=== PATIENT | female | born 1995 | race Caucasian/White ===

== ENCOUNTER 2018-04-08 13:14 | Inpatient (IN) | payer MEDICAID ==
[2018-04-08 14:29] LABS: CHLORIDE,CL 102 mmol/L (98-107); SODIUM,NA 133 mmol/L (136-145)
[2018-04-08] MEDS ORDERED: Carboprost Tromethamine 250 MCG/1 ML Amp IM PRN (15:51)
[2018-04-08] MEDS ORDERED: Sodium Chloride 0.9% 10 ML Syringe FLUSH PRN (15:51)
[2018-04-08] MEDS ORDERED: Tranexamic Acid 1,000 MG in Sodium Chloride 0.9% 100 ML IV PRN (15:51)
[2018-04-08] MEDS ORDERED: Methylergonovine 0.2 MG/1 ML Amp IM PRN (15:51)
[2018-04-08] MEDS ORDERED: Butorphanol 1 MG/ML SDV IVPUSH PRN (15:51)
[2018-04-08] MEDS ORDERED: Nalbuphine 10 MG/1 ML Vial IVPUSH PRN (15:51)
[2018-04-08] MEDS ORDERED: Water For Irrigation,Sterile 1,000 ML Container IRR PRN (15:51)
[2018-04-08] MEDS ORDERED: Sodium Chloride 0.9% 2.5 ML Syringe FLUSH PRN (15:51)
[2018-04-08] MEDS ORDERED: Lidocaine 1% 50 ML MDV INJECT PRN (15:51)
[2018-04-08] MEDS ORDERED: Misoprostol 200 MCG Tab PO PRN (15:51)
[2018-04-08] MEDS ORDERED: Misoprostol 25 MCG (1/4 of 100 MCG) Tab VAG PRN (15:56)
[2018-04-08] MEDS ORDERED: Terbutaline 1 MG/ML SDV SUBCUT PRN (15:56)
[2018-04-08] MEDS ORDERED: Oxytocin/0.9 % Sodium Chloride 30 UNIT/500 ML BAG IV SCH ×2 (16:00)
[2018-04-08] MEDS: Lactated Ringers 1,000 ML IV SCH ×2 (16:38→23:34)
[2018-04-08] MEDS: Misoprostol 25 MCG (1/4 of 100 MCG) Tab VAG PRN ×2 (16:38→17:09)
[2018-04-09] MEDS ORDERED: Lidocaine HCl/EPINEPHrine 5 ML IJ ONE (00:44)
[2018-04-09] MEDS ORDERED: fentaNYL 100 MCG/2 ML SDV ONE (00:45)
[2018-04-09] MEDS ORDERED: Ropivacaine 0.2% 2 MG/ML 20 ML SDV ONE (00:46)
[2018-04-09] MEDS: Lactated Ringers 1,000 ML IV SCH (00:56)
--- NOTE | 2018-04-09 01:26 | PCM.PREANE ---
Preanesthetic Assessment - Anesthesia/Transfusion/Family Hx Anesthesia History: Prior Anesthesia Without Reaction (States had a broken bone) Family History of Anesthesia Reaction: No Transfusion History: No Prior Transfusion(s) - Review of Systems General: No Symptoms Pulmonary: No Symptoms Cardiovascular: No Symptoms Gastrointestinal: No Symptoms Neurological: No Symptoms Other: Reports: None (Denies any personal or family hx of bleeding or clotting problems) - Physical Assessment Height: 1.7 m Weight: 81.193 kg ASA Class: 2 Mental Status: Alert & Oriented x3 Airway Class: Mallampati = 2 Dentition: Reports: Normal Dentition ROM/Head Extension: Full - Lab Values: Laboratory Last Values WBC 7.62 K/uL (4.0-11.0) 04/08/18 13:55 RBC 3.80 M/uL (4.30-5.90) L 04/08/18 13:55 Hgb 12.3 g/dL (12.0-16.0) 04/08/18 13:55 Hct 35.5 % (36.0-46.0) L 04/08/18 13:55 MCV 93.4 fL (80.0-98.0) 04/08/18 13:55 MCH 32.4 pg (27.0-32.0) H 04/08/18 13:55 MCHC 34.6 g/dL (31.0-37.0) 04/08/18 13:55 RDW Std Deviation 42.6 fl (28.0-62.0) 04/08/18 13:55 RDW Coeff of Adrien 13 % (11.0-15.0) 04/08/18 13:55 Plt Count 162 K/uL (150-400) 04/08/18 13:55 MPV 11.30 fL (7.40-12.00) 04/08/18 13:55 Neut % (Auto) 70.2 % (48.0-80.0) 04/08/18 13:55 Lymph % (Auto) 19.8 % (16.0-40.0) 04/08/18 13:55 [place] % (Auto) 7.7 % (0.0-15.0) 04/08/18 13:55 Eos % (Auto) 2.0 % (0.0-7.0) 04/08/18 13:55 Baso % (Auto) 0.3 % (0.0-1.5) 04/08/18 13:55 Neut # (Auto) 5.4 K/uL (1.4-5.7) 04/08/18 13:55 Lymph # (Auto) 1.5 K/uL (0.6-2.4) 04/08/18 13:55 [place] # (Auto) 0.6 K/uL (0.0-0.8) 04/08/18 13:55 Eos # (Auto) 0.2 K/uL (0.0-0.7) 04/08/18 13:55 Baso # (Auto) 0.0 K/uL (0.0-0.1) 04/08/18 13:55 Nucleated RBC % 0.0 /100WBC 04/08/18 13:55 Nucleated RBCs # 0 K/uL 04/08/18 13:55 Sodium 133 mmol/L (136-145) L 04/08/18 13:55 Potassium 3.8 mmol/L (3.5-5.1) 04/08/18 13:55 Chloride 102 mmol/L (98-107) 04/08/18 13:55 Carbon Dioxide 21.4 mmol/L (21.0-32.0) 04/08/18 13:55 BUN 9 mg/dL (7.0-18.0) 04/08/18 13:55 Creatinine 0.9 mg/dL (0.6-1.0) 04/08/18 13:55 Est Cr Clr Drug Dosing 95.35 mL/min 04/08/18 13:55 Estimated GFR (MDRD) > 60.0 ml/min 04/08/18 13:55 Glucose 95 mg/dL (74-106) 04/08/18 13:55 Uric Acid 5.4 mg/dL (2.6-7.2) 04/08/18 13:55 Calcium 9.2 mg/dL (8.5-10.1) 04/08/18 13:55 Total Bilirubin 0.3 mg/dL (0.2-1.0) 04/08/18 13:55 AST 14 IU/L (15-37) L 04/08/18 13:55 ALT 11 IU/L (14-63) L 04/08/18 13:55 Alkaline Phosphatase 224 U/L (46-116) H 04/08/18 13:55 Total Protein 6.5 g/dL (6.4-8.2) 04/08/18 13:55 Albumin 2.7 g/dL (3.4-5.0) L 04/08/18 13:55 Globulin 3.8 g/dL (2.6-4.0) 04/08/18 13:55 Albumin/Globulin Ratio 0.7 (0.9-1.6) L 04/08/18 13:55 Blood Type A POSITIVE 04/08/18 16:16 Antibody Screen NEGATIVE 04/08/18 16:16 - Allergies Allergies/Adverse Reactions: Allergies Allergy/AdvReac Type Severity Reaction Status Date / Time No Known Allergies Allergy Verified 03/16/18 15:14 - Acknowledgements Anesthesia Type Planned: Epidural Pt an Appropriate Candidate for the Planned Anesthesia: Yes Alternatives and Risks of Anesthesia Discussed w Pt/Guardian: Yes Pt/Guardian Understands and Agrees with Anesthesia Plan: Yes PreAnesthesia Questionnaire - Past Health History Medical/Surgical History: Denies Medical/Surgical History - Infectious Disease History Infectious Disease History: Reports: Mononucleosis - SUBSTANCE USE Smoking Status *Q: Never Smoker Tobacco Use Within Last Twelve Months: No Second Hand Smoke Exposure: No Recreational Drug Use History: No - HOME MEDS Home Medications: Home Meds [id number]/Omega3/Dha/Fish Oil [ Gummies] 1 each PO DAILY 03/16/18 [ History] - CURRENT (IN HOUSE) MEDS Current Meds: Current Medications Butorphanol Tartrate (Stadol) 1 mg IVPUSH Q1H PRN PRN Reason: Pain Carboprost Tromethamine (Hemabate Ds) 250 mcg IM ASDIRECTED PRN PRN Reason: Post Hemorrhage Tranexamic Acid 1,000 mg/ (Sodium Chloride) 110 mls @ 660 mls/hr IV ONETIME PRN PRN Reason: Bleeding Lactated Ringer's (Ringers, Lactated) 1,000 mls @ 150 mls/hr IV ASDIRECTED [facility] Last Admin: 04/09/18 00:56 Dose: 999 mls/hr Oxytocin/Sodium Chloride (Oxytocin 30 Unit/500 Ml-Ns) 30 unit in 500 mls @ 999 mls/hr IV TITRATE [facility] Oxytocin/Sodium Chloride (Oxytocin 30 Unit/500 Ml-Ns) 30 unit in 500 mls @ 2 mls/hr IV TITRATE [facility]; Protocol Last Titration: 04/09/18 01:23 Dose: 6 munits/min, 6 mls/hr Lidocaine HCl (Xylocaine 1%) 50 ml INJECT ONETIME PRN PRN Reason: Laceration repair Methylergonovine Maleate (Methergine) 0.2 mg IM ASDIRECTED PRN PRN Reason: Post Hemorrhage Misoprostol (Cytotec) 200 mcg PO ONETIME PRN PRN Reason: Post Hemorrhage Misoprostol (Cytotec) 25 mcg VAG ONETIME PRN PRN Reason: Cervical Ripening Last Admin: 04/08/18 17:09 Dose: 25 mcg Misoprostol (Cytotec) 25 mcg VAG Q6H PRN PRN Reason: Cervical Ripening Nalbuphine HCl (Nubain) 10 mg IVPUSH Q1H PRN PRN Reason: Pain (severe 7-10) Sodium Chloride (Saline Flush) 10 ml FLUSH ASDIRECTED PRN PRN Reason: Keep Vein Open Sodium Chloride (Saline Flush) 2.5 ml FLUSH ASDIRECTED PRN PRN Reason: Keep Vein Open Sterile Water (Sterile Water For Irrigation) 1,000 ml IRR ASDIRECTED PRN PRN Reason: delivery Terbutaline Sulfate (Brethine) 0.25 mg SUBCUT ASDIRECTED PRN PRN Reason: Tacysystole Discontinued Medications Fentanyl (Sublimaze) Confirm Administered Dose 100 mcg .ROUTE .STK-MED ONE Stop: 04/09/18 00:46 Fentanyl/Bupivacaine HCl (Aylahgsh-Owywq-Mx 2 Mcg/Ml-0.125%) Confirm Administered Dose 100 mls @ as directed .ROUTE .STK-MED ONE Stop: 04/09/18 00:45 Lidocaine/Epinephrine (Lidocaine 1.5%-Epi 1:200,000) Confirm Administered Dose 5 ml IJ .STK-MED ONE Stop: 04/09/18 00:45 Ropivacaine (Naropin 0.2%) Confirm Administered Dose 20 ml .ROUTE .STK-MED ONE Stop: 04/09/18 00:47
[2018-04-09] MEDS ORDERED: Acetaminophen 500 MG Tab PO PRN (14:35)
[2018-04-09] MEDS ORDERED: Bisacodyl 10 MG Supp RECTAL PRN (14:35)
[2018-04-09] MEDS ORDERED: Ibuprofen 400 MG Tab PO PRN (14:35)
[2018-04-09] MEDS ORDERED: Benzocaine/Menthol 20%-0.5% Spray 78 GM Cannister TOP PRN (14:35)
[2018-04-09] MEDS ORDERED: Witch Hazel Medicated Pads 40/Jar TOP PRN (14:35)
[2018-04-09] MEDS ORDERED: Lanolin 100% Cream 7 GM Tube TOP PRN (14:35)
[2018-04-09] MEDS ORDERED: oxyCODONE 5 MG Tab PO PRN (14:35)
--- NOTE | 2018-04-09 14:43 | PCM.DEL ---
L & D Note - General Info Date of Service: 04/09/18 Mother's Due Date: 04/23/18 - Delivery Note Labor: Augmented by Oxytocin Cervical Ripening Method: Misoprostil Delivery Outcome: Livebirth Presentation: Left Occiput Anterior (ISAAK) Nuchal Cord: None Anesthesia Type: Epidural Anesthetic: Lidocaine (Xylocaine) 1% Plain Local Anesthetic Volume: 5cc Amniotic Fluid Description: Clear Episiotomy Type: Right Mediolateral Suture type: Other (monocryl) Suture size: 2-0 Placenta: Intact Cord: 3 Vessels Estimated Blood Loss: 400 Resuscitation Needed: No Score 1 min: 8 Score 5 min: 9 Delivery Comments (Free Text/Narrative):: Live female delivered at 1341 , 8/9 weight 3190 , EBL 400,gave methergine 0.2mg - General Info Date of Service: 04/09/18 - Patient Data Weight - Most Recent: 81.193 kg Lab Results Last 24 Hours: Laboratory Results - last 24 hr 04/08/18 Range/Units 16:16 Blood Type A POSITIVE Antibody Screen NEGATIVE Med Orders - Current: Current Medications Butorphanol Tartrate (Stadol) 1 mg IVPUSH Q1H PRN PRN Reason: Pain Carboprost Tromethamine (Hemabate Ds) 250 mcg IM ASDIRECTED PRN PRN Reason: Post Hemorrhage Tranexamic Acid 1,000 mg/ (Sodium Chloride) 110 mls @ 660 mls/hr IV ONETIME PRN PRN Reason: Bleeding Lactated Ringer's (Ringers, Lactated) 1,000 mls @ 150 mls/hr IV ASDIRECTED [facility] Last Admin: 04/09/18 00:56 Dose: 999 mls/hr Oxytocin/Sodium Chloride (Oxytocin 30 Unit/500 Ml-Ns) 30 unit in 500 mls @ 999 mls/hr IV TITRATE [facility]IT Oxytocin/Sodium Chloride (Oxytocin 30 Unit/500 Ml-Ns) 30 unit in 500 mls @ 2 mls/hr IV TITRATE [facility]; Protocol Last Titration: 04/09/18 06:45 Dose: 6 munits/min, 6 mls/hr Lidocaine HCl (Xylocaine 1%) 50 ml INJECT ONETIME PRN PRN Reason: Laceration repair Methylergonovine Maleate (Methergine) 0.2 mg IM ASDIRECTED PRN PRN Reason: Post Hemorrhage Misoprostol (Cytotec) 200 mcg PO ONETIME PRN PRN Reason: Post Hemorrhage Misoprostol (Cytotec) 25 mcg VAG ONETIME PRN PRN Reason: Cervical Ripening Last Admin: 04/08/18 17:09 Dose: 25 mcg Misoprostol (Cytotec) 25 mcg VAG Q6H PRN PRN Reason: Cervical Ripening Nalbuphine HCl (Nubain) 10 mg IVPUSH Q1H PRN PRN Reason: Pain (severe 7-10) Sodium Chloride (Saline Flush) 10 ml FLUSH ASDIRECTED PRN PRN Reason: Keep Vein Open Sodium Chloride (Saline Flush) 2.5 ml FLUSH ASDIRECTED PRN PRN Reason: Keep Vein Open Sterile Water (Sterile Water For Irrigation) 1,000 ml IRR ASDIRECTED PRN PRN Reason: delivery Terbutaline Sulfate (Brethine) 0.25 mg SUBCUT ASDIRECTED PRN PRN Reason: Tacysystole Discontinued Medications Fentanyl (Sublimaze) Confirm Administered Dose 100 mcg .ROUTE .STK-MED ONE Stop: 04/09/18 00:46 Fentanyl/Bupivacaine HCl (Qhcyqsxr-Zydng-Gh 2 Mcg/Ml-0.125%) Confirm Administered Dose 100 mls @ as directed .ROUTE .STK-MED ONE Stop: 04/09/18 00:45 Fentanyl/Bupivacaine HCl (Gwsggrnn-Auptx-El 2 Mcg/Ml-0.125%) Confirm Administered Dose 100 mls @ as directed .ROUTE .STK-MED ONE Stop: 04/09/18 11:27 Lidocaine/Epinephrine (Lidocaine 1.5%-Epi 1:200,000) Confirm Administered Dose 5 ml IJ .STK-MED ONE Stop: 04/09/18 00:45 Ropivacaine (Naropin 0.2%) Confirm Administered Dose 20 ml .ROUTE .STK-MED ONE Stop: 04/09/18 00:47 - Problem List & Annotations (1) Vaginal delivery SNOMED Code(s): 709900713 Code(s): O80 - ENCOUNTER FOR FULL-TERM UNCOMPLICATED DELIVERY Status: Acute Current Visit: Yes - Problem List Review Problem List Initiated/Reviewed/Updated: Yes - My Orders Last 24 Hours: My Active Orders 04/09/18 14:35 Acetaminophen [Tylenol Extra Strength] 1,000 mg PO Q4H PRN Acetaminophen [Tylenol Extra Strength] 500 mg PO Q4H PRN Benzocaine/Menthol [Dermoplast Pain Relief 20%-0.5% [place]] 78 gm TOP ASDIRECTED PRN Bisacodyl [Dulcolax] 10 mg RECTAL ONETIME PRN Docusate Sodium [Colace] 100 mg PO BID PRN Ibuprofen [Motrin] 400 mg PO Q4H PRN Ibuprofen [Motrin] 800 mg PO Q6H PRN Lanolin [Lansinoh HPA] See Dose Instructions TOP ASDIRECTED PRN Witch Kristen [Tucks] 1 pad TOP ASDIRECTED PRN oxyCODONE 5 mg PO Q2H PRN Resuscitation Status Routine 04/09/18 14:36 Patient Status [ADT] Routine May Shower [RC] ASDIRECTED Up ad Dalila [RC] ASDIRECTED Vital Signs [RC] PER UNIT ROUTINE Assess Lochia [WOMSER] Per Unit Routine Assess Uterine Involution [WOMSER] Per Unit Routine Peripheral IV Discontinue [OM.PC] Routine 04/09/18 Breakfast Regular Diet [DIET] 04/10/18 05:11 HEMOGLOBIN/HEMATOCRIT,HH [HEME] Timed
[2018-04-09] MEDS: Ibuprofen 800 MG Tab PO PRN (16:02)
--- NOTE | 2018-04-09 20:29 | PCM48HPAN ---
Post Anesthesia Note - EVALUATION WITHIN 48HRS OF ANESTHETIC Vital Signs in Normal Range: Yes Patient Participated in Evaluation: Yes Respiratory Function Stable: Yes Airway Patent: Yes Cardiovascular Function Stable: Yes Hydration Status Stable: Yes Pain Control Satisfactory: Yes Nausea and Vomiting Control Satisfactory: Yes Mental Status Recovered: Yes - COMMENTS/OBSERVATIONS Free Text/Narrative:: Denies any complaints and doing well.
[2018-04-10] MEDS: Ibuprofen 800 MG Tab PO PRN ×4 (00:04→18:01)
[2018-04-10] MEDS: Labetalol 100 MG Tab PO SCH ×3 (00:06→20:43)
--- NOTE | 2018-04-10 01:31 | OR ---
SURGEON: UMANG OGLESBY DATE OF PROCEDURE: 04/09/2018 PREOPERATIVE DIAGNOSIS: A 22-year-old 1, para 0, at 38 weeks 0 days, undergoing induction of labor for gestational hypertension. GBS negative. POSTOPERATIVE DIAGNOSIS: A 22-year-old 1, para 0, at 38 weeks 0 days, undergoing induction of labor for gestational hypertension. GBS negative. PROCEDURE: Normal spontaneous vaginal delivery and repair of second-degree vaginal laceration. ANESTHESIA: Epidural. ESTIMATED BLOOD LOSS: 400. FINDINGS: A live female delivered at 1041, Apgars 8 and 9, weight is 3190 g BRIEF HISTORY OF PATIENT: She is 22 years old G1, P0, at 38 weeks 0 days, who was seen in the clinic and noted to have elevated blood pressures. The patient previously had a diagnosis of gestational hypertension because patient had elevated blood pressures of 140s over 90s. The patient was counseled for delivery. She understood the risks, benefits, and alternatives and desired to proceed. The patient was sent to Labor and Delivery where she was 3 to 4 cm dilated. She was started with Cytotec after which Pitocin was started. She had a normal labor curve and became fully dilated. . Right episiotomy was repaired with 2-0 Monocryl. During the labor course, the patient had mainly category I tracing. Blood pressures were ranging between 110 to 140s over 80s to 90s. She denied headache, blurry vision, or right upper quadrant pain. The patient also declined magnesium. PROCEDURE: With the patient being fully dilated. She was encouraged to push. She pushed for 1.5 hours. Then she delivered the head, subsequently by the anterior and posterior shoulder of the , the baby was delivered. was placed on the maternal abdomen. Delayed cord clamping was observed. The placenta was then removed via controlled cord traction. The uterus was then massaged. The right medial lateral episiotomy was stitched after infiltration of 1% lidocaine. The incision was then stitched in a layered fashion. Hemostasis was noted. All instrument and pad count were correct x2. Patient tolerated the procedure well and was left with the infant and family in stable condition. ADI DIGGS /[id number] CARLOS
[2018-04-10] MEDS: Docusate Sodium 100 MG Cap PO PRN ×2 (08:30→20:42)
--- NOTE | 2018-04-10 13:08 | PCM.SN ---
- Free Text/Narrative Note: Retrospective Note: Patient noted to have BPs 140s- 160s/80s - 90s, she denies headache , BV and RUQ pain. I informed patient i recommend magnessium for seizure prophylaxis based on BP , patient was informed of the risk of uncontrolled BP , Eclampsia ( convulsions). Patient states her sister was placed magnessium and she feels okay and does not think she need it I had about a 20 minutes face to face discussion with her . she adamantly declines magnessium . She also state she will like to go home tomorrow. I informed her that i do not recommend this. I informed her that she will need to sign a refusal of treatment form
--- NOTE | 2018-04-10 13:16 | PCM.PNLD ---
Labor Progress Note - VS & Meds Vital Signs: Last Vital Signs Temp 36.9 C 04/10/18 07:40 Pulse 77 04/10/18 08:30 Resp 16 04/10/18 07:40 BP 148/85 H 04/10/18 11:59 Pulse Ox 97 04/10/18 07:40 Active Medications: Current Medications Acetaminophen (Tylenol Extra Strength) 500 mg PO Q4H PRN PRN Reason: Pain Acetaminophen (Tylenol Extra Strength) 1,000 mg PO Q4H PRN PRN Reason: Pain Benzocaine/Menthol (Dermoplast Pain Relief 20%-0.5% [place]) 78 gm TOP ASDIRECTED PRN PRN Reason: Perineal Comfort Measure Last Admin: 04/09/18 16:01 Dose: 1 canister Bisacodyl (Dulcolax) 10 mg RECTAL ONETIME PRN PRN Reason: Constipation Butorphanol Tartrate (Stadol) 1 mg IVPUSH Q1H PRN PRN Reason: Pain Carboprost Tromethamine (Hemabate Ds) 250 mcg IM ASDIRECTED PRN PRN Reason: Post Hemorrhage Docusate Sodium (Colace) 100 mg PO BID PRN PRN Reason: Constipation Last Admin: 04/10/18 08:30 Dose: 100 mg Emollient Ointment (Lansinoh Hpa) 0 gm TOP ASDIRECTED PRN PRN Reason: Sore Nipples Tranexamic Acid 1,000 mg/ (Sodium Chloride) 110 mls @ 660 mls/hr IV ONETIME PRN PRN Reason: Bleeding Lactated Ringer's (Ringers, Lactated) 1,000 mls @ 150 mls/hr IV ASDIRECTED [facility] Last Admin: 04/09/18 00:56 Dose: 999 mls/hr Oxytocin/Sodium Chloride (Oxytocin 30 Unit/500 Ml-Ns) 30 unit in 500 mls @ 999 mls/hr IV TITRATE [facility] Oxytocin/Sodium Chloride (Oxytocin 30 Unit/500 Ml-Ns) 30 unit in 500 mls @ 2 mls/hr IV TITRATE [facility]; Protocol Last Titration: 04/09/18 06:45 Dose: 6 munits/min, 6 mls/hr Ibuprofen (Motrin) 400 mg PO Q4H PRN PRN Reason: Pain Ibuprofen (Motrin) 800 mg PO Q6H PRN PRN Reason: Pain Last Admin: 04/10/18 12:01 Dose: 800 mg Labetalol HCl (Normodyne) 100 mg PO BID SUMIT Last Admin: 04/10/18 08:30 Dose: 100 mg Lidocaine HCl (Xylocaine 1%) 50 ml INJECT ONETIME PRN PRN Reason: Laceration repair Last Admin: 04/09/18 13:41 Dose: 50 ml Methylergonovine Maleate (Methergine) 0.2 mg IM ASDIRECTED PRN PRN Reason: Post Hemorrhage Last Admin: 04/09/18 16:05 Dose: 0.2 mg Misoprostol (Cytotec) 200 mcg PO ONETIME PRN PRN Reason: Post Hemorrhage Misoprostol (Cytotec) 25 mcg VAG ONETIME PRN PRN Reason: Cervical Ripening Last Admin: 04/08/18 17:09 Dose: 25 mcg Misoprostol (Cytotec) 25 mcg VAG Q6H PRN PRN Reason: Cervical Ripening Nalbuphine HCl (Nubain) 10 mg IVPUSH Q1H PRN PRN Reason: Pain (severe 7-10) Oxycodone HCl (Oxycodone) 5 mg PO Q2H PRN PRN Reason: Pain Last Admin: 04/09/18 16:03 Dose: 5 mg Sodium Chloride (Saline Flush) 10 ml FLUSH ASDIRECTED PRN PRN Reason: Keep Vein Open Sodium Chloride (Saline Flush) 2.5 ml FLUSH ASDIRECTED PRN PRN Reason: Keep Vein Open Sterile Water (Sterile Water For Irrigation) 1,000 ml IRR ASDIRECTED PRN PRN Reason: delivery Last Admin: 04/09/18 13:41 Dose: 1,000 ml Terbutaline Sulfate (Brethine) 0.25 mg SUBCUT ASDIRECTED PRN PRN Reason: Tacysystole Witch Kristen (Tucks) 1 pad TOP ASDIRECTED PRN PRN Reason: comfort care Last Admin: 04/09/18 16:02 Dose: 1 tub Discontinued Medications Fentanyl (Sublimaze) Confirm Administered Dose 100 mcg .ROUTE .STK-MED ONE Stop: 04/09/18 00:46 Last Admin: 04/09/18 23:13 Dose: Not Given Fentanyl/Bupivacaine HCl (Bxrdzueu-Kcavv-Wm 2 Mcg/Ml-0.125%) Confirm Administered Dose 100 mls @ as directed .ROUTE .STK-MED ONE Stop: 04/09/18 00:45 Last Admin: 04/09/18 23:12 Dose: Not Given Fentanyl/Bupivacaine HCl (Etlivllk-Snckr-Kp 2 Mcg/Ml-0.125%) Confirm Administered Dose 100 mls @ as directed .ROUTE .STK-MED ONE Stop: 04/09/18 11:27 Last Admin: 04/09/18 23:14 Dose: Not Given Lidocaine/Epinephrine (Lidocaine 1.5%-Epi 1:200,000) Confirm Administered Dose 5 ml IJ .STK-MED ONE Stop: 04/09/18 00:45 Last Admin: 04/09/18 23:13 Dose: Not Given Ropivacaine (Naropin 0.2%) Confirm Administered Dose 20 ml .ROUTE .STK-MED ONE Stop: 04/09/18 00:47 Last Admin: 04/09/18 23:13 Dose: Not Given
--- NOTE | 2018-04-10 13:30 | PCM.PNPP ---
- General Info Date of Service: 04/10/18 Subjective Update: 22yo P1 s/p , Severe preclampsia based on BPs She has BPS 130 - 170s, she declines magnessium. She declines headache , RUQ pain and BV Functional Status: Reports: Pain Controlled, Tolerating Diet, Ambulating, Urinating - Review of Systems General: Reports: No Symptoms HEENT: Reports: No Symptoms Pulmonary: Reports: No Symptoms Cardiovascular: Reports: No Symptoms Gastrointestinal: Reports: No Symptoms Genitourinary: Reports: No Symptoms Musculoskeletal: Reports: No Symptoms Skin: Reports: No Symptoms Neurological: Reports: No Symptoms Psychiatric: Reports: No Symptoms - General Info Date of Service: 04/10/18 - Patient Data Vital Signs - Most Recent: Last Vital Signs Temp 36.9 C 04/10/18 07:40 Pulse 77 04/10/18 08:30 Resp 16 04/10/18 07:40 BP 148/85 H 04/10/18 11:59 Pulse Ox 97 04/10/18 07:40 Weight - Most Recent: 81.193 kg Lab Results - Last 24 Hours: Laboratory Results - last 24 hr 04/10/18 Range/Units 07:04 Hgb 10.8 L (12.0-16.0) g/dL Hct 31.7 L (36.0-46.0) % Med Orders - Current: Current Medications Acetaminophen (Tylenol Extra Strength) 500 mg PO Q4H PRN PRN Reason: Pain Acetaminophen (Tylenol Extra Strength) 1,000 mg PO Q4H PRN PRN Reason: Pain Benzocaine/Menthol (Dermoplast Pain Relief 20%-0.5% [place]) 78 gm TOP ASDIRECTED PRN PRN Reason: Perineal Comfort Measure Last Admin: 04/09/18 16:01 Dose: 1 canister Bisacodyl (Dulcolax) 10 mg RECTAL ONETIME PRN PRN Reason: Constipation Butorphanol Tartrate (Stadol) 1 mg IVPUSH Q1H PRN PRN Reason: Pain Carboprost Tromethamine (Hemabate Ds) 250 mcg IM ASDIRECTED PRN PRN Reason: Post Hemorrhage Docusate Sodium (Colace) 100 mg PO BID PRN PRN Reason: Constipation Last Admin: 04/10/18 08:30 Dose: 100 mg Emollient Ointment (Lansinoh Hpa) 0 gm TOP ASDIRECTED PRN PRN Reason: Sore Nipples Tranexamic Acid 1,000 mg/ (Sodium Chloride) 110 mls @ 660 mls/hr IV ONETIME PRN PRN Reason: Bleeding Lactated Ringer's (Ringers, Lactated) 1,000 mls @ 150 mls/hr IV ASDIRECTED [facility] Last Admin: 04/09/18 00:56 Dose: 999 mls/hr Oxytocin/Sodium Chloride (Oxytocin 30 Unit/500 Ml-Ns) 30 unit in 500 mls @ 999 mls/hr IV TITRATE [facility] Oxytocin/Sodium Chloride (Oxytocin 30 Unit/500 Ml-Ns) 30 unit in 500 mls @ 2 mls/hr IV TITRATE [facility]; Protocol Last Titration: 04/09/18 06:45 Dose: 6 munits/min, 6 mls/hr Ibuprofen (Motrin) 400 mg PO Q4H PRN PRN Reason: Pain Ibuprofen (Motrin) 800 mg PO Q6H PRN PRN Reason: Pain Last Admin: 04/10/18 12:01 Dose: 800 mg Labetalol HCl (Normodyne) 100 mg PO BID SUMIT Last Admin: 04/10/18 08:30 Dose: 100 mg Lidocaine HCl (Xylocaine 1%) 50 ml INJECT ONETIME PRN PRN Reason: Laceration repair Last Admin: 04/09/18 13:41 Dose: 50 ml Methylergonovine Maleate (Methergine) 0.2 mg IM ASDIRECTED PRN PRN Reason: Post Hemorrhage Last Admin: 04/09/18 16:05 Dose: 0.2 mg Misoprostol (Cytotec) 200 mcg PO ONETIME PRN PRN Reason: Post Hemorrhage Misoprostol (Cytotec) 25 mcg VAG ONETIME PRN PRN Reason: Cervical Ripening Last Admin: 04/08/18 17:09 Dose: 25 mcg Misoprostol (Cytotec) 25 mcg VAG Q6H PRN PRN Reason: Cervical Ripening Nalbuphine HCl (Nubain) 10 mg IVPUSH Q1H PRN PRN Reason: Pain (severe 7-10) Oxycodone HCl (Oxycodone) 5 mg PO Q2H PRN PRN Reason: Pain Last Admin: 04/09/18 16:03 Dose: 5 mg Sodium Chloride (Saline Flush) 10 ml FLUSH ASDIRECTED PRN PRN Reason: Keep Vein Open Sodium Chloride (Saline Flush) 2.5 ml FLUSH ASDIRECTED PRN PRN Reason: Keep Vein Open Sterile Water (Sterile Water For Irrigation) 1,000 ml IRR ASDIRECTED PRN PRN Reason: delivery Last Admin: 04/09/18 13:41 Dose: 1,000 ml Terbutaline Sulfate (Brethine) 0.25 mg SUBCUT ASDIRECTED PRN PRN Reason: Tacysystole Witch Kristen (Tucks) 1 pad TOP ASDIRECTED PRN PRN Reason: comfort care Last Admin: 04/09/18 16:02 Dose: 1 tub Discontinued Medications Fentanyl (Sublimaze) Confirm Administered Dose 100 mcg .ROUTE .STK-MED ONE Stop: 04/09/18 00:46 Last Admin: 04/09/18 23:13 Dose: Not Given Fentanyl/Bupivacaine HCl (Ufhbnvhw-Pwahe-Bp 2 Mcg/Ml-0.125%) Confirm Administered Dose 100 mls @ as directed .ROUTE .STK-MED ONE Stop: 04/09/18 00:45 Last Admin: 04/09/18 23:12 Dose: Not Given Fentanyl/Bupivacaine HCl (Nmctpzmn-Sqpfu-Ao 2 Mcg/Ml-0.125%) Confirm Administered Dose 100 mls @ as directed .ROUTE .STK-MED ONE Stop: 04/09/18 11:27 Last Admin: 04/09/18 23:14 Dose: Not Given Lidocaine/Epinephrine (Lidocaine 1.5%-Epi 1:200,000) Confirm Administered Dose 5 ml IJ .STK-MED ONE Stop: 04/09/18 00:45 Last Admin: 04/09/18 23:13 Dose: Not Given Ropivacaine (Naropin 0.2%) Confirm Administered Dose 20 ml .ROUTE .STK-MED ONE Stop: 04/09/18 00:47 Last Admin: 04/09/18 23:13 Dose: Not Given - Infant Interaction Support Person: Significant Other - Recovery Exam Fundal Tone: Firm Fundal Level: 1 Fingerbreadths Below Umbilicus Fundal Placement: Midline Lochia Amount: Scant Lochia Color: Rubra/Red Perineum Description: Other (see below) Other Perinuem Description: 2nd degree episiotomy Episiotomy/Laceration: Approximated Bladder Status: Voiding - Exam General: Alert HEENT: Pupils Equal Neck: Supple Lungs: Clear to Auscultation Cardiovascular: Regular Rate, Regular Rhythm GI/Abdominal Exam: Normal Bowel Sounds Extremities: Normal Inspection Neurological: No New Focal Deficit - Problem List & Annotations (1) Vaginal delivery SNOMED Code(s): 707044104 Code(s): O80 - ENCOUNTER FOR FULL-TERM UNCOMPLICATED DELIVERY Status: Acute Current Visit: Yes - Problem List Review Problem List Initiated/Reviewed/Updated: Yes - My Orders Last 24 Hours: My Active Orders 04/09/18 14:35 Acetaminophen [Tylenol Extra Strength] 1,000 mg PO Q4H PRN Acetaminophen [Tylenol Extra Strength] 500 mg PO Q4H PRN Benzocaine/Menthol [Dermoplast Pain Relief 20%-0.5% [place]] 78 gm TOP ASDIRECTED PRN Bisacodyl [Dulcolax] 10 mg RECTAL ONETIME PRN Docusate Sodium [Colace] 100 mg PO BID PRN Ibuprofen [Motrin] 400 mg PO Q4H PRN Ibuprofen [Motrin] 800 mg PO Q6H PRN Lanolin [Lansinoh HPA] See Dose Instructions TOP ASDIRECTED PRN Witch Kristen [Tucks] 1 pad TOP ASDIRECTED PRN oxyCODONE 5 mg PO Q2H PRN Resuscitation Status Routine 04/09/18 14:36 Patient Status [ADT] Routine May Shower [RC] ASDIRECTED Up ad Dalila [RC] ASDIRECTED Vital Signs [RC] PER UNIT ROUTINE Assess Lochia [WOMSER] Per Unit Routine Assess Uterine Involution [WOMSER] Per Unit Routine Peripheral IV Discontinue [OM.PC] Routine 04/09/18 23:15 Labetalol [Normodyne] 100 mg PO BID - Assessment Assessment:: 22 yo P1 s/p , Severe preclampsia , based on BPs , she declines headache , RUQ pain and BV , started labetalol 100mg bid - Plan Plan:: Preclampsia precautions Increase labetalol to 200mg bid Routine care
[2018-04-10] MEDS ORDERED: Labetalol 100 MG Tab PO ONE (13:35)
[2018-04-10] MEDS: Acetaminophen 500 MG Tab PO PRN (20:42)
[2018-04-11] MEDS: Ibuprofen 800 MG Tab PO PRN (05:32)
[2018-04-11 06:49] LABS: CHLORIDE,CL 107 mmol/L (98-107); SODIUM,NA 138 mmol/L (136-145)
--- NOTE | 2018-04-11 08:07 | PCM.PNPP ---
<Ayana Solis - Last Filed: 04/11/18 08:04> - General Info Date of Service: 04/11/18 Functional Status: Reports: Pain Controlled, Tolerating Diet, Ambulating, Urinating - Review of Systems General: Denies: Fever, Weakness, Fatigue Pulmonary: Denies: Shortness of Breath, Pleuritic Chest Pain, Cough Cardiovascular: Denies: Chest Pain, Palpitations, Dyspnea on Exertion Gastrointestinal: Denies: Abdominal Pain Genitourinary: Denies: Dysuria - General Info Date of Service: 04/11/18 - Patient Data Vital Signs - Most Recent: Last Vital Signs Temp 36.2 C 04/11/18 06:06 Pulse 76 04/11/18 06:06 Resp 14 04/11/18 06:06 BP 143/70 H 04/11/18 06:06 Pulse Ox 95 04/11/18 06:06 Weight - Most Recent: 81.193 kg Lab Results - Last 24 Hours: Laboratory Results - last 24 hr 04/11/18 04/11/18 Range/Units 05:28 05:28 WBC 8.14 (4.0-11.0) K/uL RBC 3.22 L (4.30-5.90) M/uL Hgb 10.2 L (12.0-16.0) g/dL Hct 30.9 L (36.0-46.0) % MCV 96.0 (80.0-98.0) fL MCH 31.7 (27.0-32.0) pg MCHC 33.0 (31.0-37.0) g/dL RDW Std Deviation 44.5 (28.0-62.0) fl RDW Coeff of Adrien 13 (11.0-15.0) % Plt Count 132 L (150-400) K/uL MPV 11.20 (7.40-12.00) fL Neut % (Auto) 68.1 (48.0-80.0) % Lymph % (Auto) 21.9 (16.0-40.0) % [place] % (Auto) 7.1 (0.0-15.0) % Eos % (Auto) 2.7 (0.0-7.0) % Baso % (Auto) 0.2 (0.0-1.5) % Neut # (Auto) 5.5 (1.4-5.7) K/uL Lymph # (Auto) 1.8 (0.6-2.4) K/uL [place] # (Auto) 0.6 (0.0-0.8) K/uL Eos # (Auto) 0.2 (0.0-0.7) K/uL Baso # (Auto) 0.0 (0.0-0.1) K/uL Nucleated RBC % 0.0 /100WBC Nucleated RBCs # 0 K/uL Sodium 138 (136-145) mmol/L Potassium 3.6 (3.5-5.1) mmol/L Chloride 107 (98-107) mmol/L Carbon Dioxide 20.3 L (21.0-32.0) mmol/L BUN 9 (7.0-18.0) mg/dL Creatinine 1.0 (0.6-1.0) mg/dL Est Cr Clr Drug Dosing 85.81 mL/min Estimated GFR (MDRD) > 60.0 ml/min Glucose 87 (74-106) mg/dL Calcium 8.7 (8.5-10.1) mg/dL Total Bilirubin 0.2 (0.2-1.0) mg/dL AST 22 (15-37) IU/L ALT 12 L (14-63) IU/L Alkaline Phosphatase 146 H (46-116) U/L Total Protein 5.3 L (6.4-8.2) g/dL Albumin 2.0 L (3.4-5.0) g/dL Globulin 3.3 (2.6-4.0) g/dL Albumin/Globulin Ratio 0.6 L (0.9-1.6) Med Orders - Current: Current Medications Acetaminophen (Tylenol Extra Strength) 500 mg PO Q4H PRN PRN Reason: Pain Acetaminophen (Tylenol Extra Strength) 1,000 mg PO Q4H PRN PRN Reason: Pain Last Admin: 04/10/18 20:42 Dose: 1,000 mg Benzocaine/Menthol (Dermoplast Pain Relief 20%-0.5% [place]) 78 gm TOP ASDIRECTED PRN PRN Reason: Perineal Comfort Measure Last Admin: 04/09/18 16:01 Dose: 1 canister Bisacodyl (Dulcolax) 10 mg RECTAL ONETIME PRN PRN Reason: Constipation Butorphanol Tartrate (Stadol) 1 mg IVPUSH Q1H PRN PRN Reason: Pain Carboprost Tromethamine (Hemabate Ds) 250 mcg IM ASDIRECTED PRN PRN Reason: Post Hemorrhage Docusate Sodium (Colace) 100 mg PO BID PRN PRN Reason: Constipation Last Admin: 04/10/18 20:42 Dose: 100 mg Emollient Ointment (Lansinoh Hpa) 0 gm TOP ASDIRECTED PRN PRN Reason: Sore Nipples Tranexamic Acid 1,000 mg/ (Sodium Chloride) 110 mls @ 660 mls/hr IV ONETIME PRN PRN Reason: Bleeding Lactated Ringer's (Ringers, Lactated) 1,000 mls @ 150 mls/hr IV ASDIRECTED SUMIT Last Admin: 04/09/18 00:56 Dose: 999 mls/hr Oxytocin/Sodium Chloride (Oxytocin 30 Unit/500 Ml-Ns) 30 unit in 500 mls @ 999 mls/hr IV TITRATE SUMIT Oxytocin/Sodium Chloride (Oxytocin 30 Unit/500 Ml-Ns) 30 unit in 500 mls @ 2 mls/hr IV TITRATE SUMIT; Protocol Last Titration: 04/09/18 06:45 Dose: 6 munits/min, 6 mls/hr Ibuprofen (Motrin) 400 mg PO Q4H PRN PRN Reason: Pain Ibuprofen (Motrin) 800 mg PO Q6H PRN PRN Reason: Pain Last Admin: 04/11/18 05:32 Dose: 800 mg Labetalol HCl (Normodyne) 200 mg PO BID SUMIT Last Admin: 04/10/18 20:43 Dose: 200 mg Lidocaine HCl (Xylocaine 1%) 50 ml INJECT ONETIME PRN PRN Reason: Laceration repair Last Admin: 04/09/18 13:41 Dose: 50 ml Methylergonovine Maleate (Methergine) 0.2 mg IM ASDIRECTED PRN PRN Reason: Post Hemorrhage Last Admin: 04/09/18 16:05 Dose: 0.2 mg Misoprostol (Cytotec) 200 mcg PO ONETIME PRN PRN Reason: Post Hemorrhage Misoprostol (Cytotec) 25 mcg VAG ONETIME PRN PRN Reason: Cervical Ripening Last Admin: 04/08/18 17:09 Dose: 25 mcg Misoprostol (Cytotec) 25 mcg VAG Q6H PRN PRN Reason: Cervical Ripening Nalbuphine HCl (Nubain) 10 mg IVPUSH Q1H PRN PRN Reason: Pain (severe 7-10) Oxycodone HCl (Oxycodone) 5 mg PO Q2H PRN PRN Reason: Pain Last Admin: 04/09/18 16:03 Dose: 5 mg Sodium Chloride (Saline Flush) 10 ml FLUSH ASDIRECTED PRN PRN Reason: Keep Vein Open Sodium Chloride (Saline Flush) 2.5 ml FLUSH ASDIRECTED PRN PRN Reason: Keep Vein Open Sterile Water (Sterile Water For Irrigation) 1,000 ml IRR ASDIRECTED PRN PRN Reason: delivery Last Admin: 04/09/18 13:41 Dose: 1,000 ml Terbutaline Sulfate (Brethine) 0.25 mg SUBCUT ASDIRECTED PRN PRN Reason: Tacysystole Witch Kristen (Tucks) 1 pad TOP ASDIRECTED PRN PRN Reason: comfort care Last Admin: 04/09/18 16:02 Dose: 1 tub Discontinued Medications Fentanyl (Sublimaze) Confirm Administered Dose 100 mcg .ROUTE .STK-MED ONE Stop: 04/09/18 00:46 Last Admin: 04/09/18 23:13 Dose: Not Given Fentanyl/Bupivacaine HCl (Hmgaacsq-Euzty-Wl 2 Mcg/Ml-0.125%) Confirm Administered Dose 100 mls @ as directed .ROUTE .STK-MED ONE Stop: 04/09/18 00:45 Last Admin: 04/09/18 23:12 Dose: Not Given Fentanyl/Bupivacaine HCl (Xkyamwon-Qrswo-Kp 2 Mcg/Ml-0.125%) Confirm Administered Dose 100 mls @ as directed .ROUTE .STK-MED ONE Stop: 04/09/18 11:27 Last Admin: 04/09/18 23:14 Dose: Not Given Labetalol HCl (Normodyne) 100 mg PO BID SUMIT Last Admin: 04/10/18 08:30 Dose: 100 mg Labetalol HCl (Normodyne) 100 mg PO ONETIME ONE Stop: 04/10/18 13:36 Last Admin: 04/10/18 14:13 Dose: 100 mg Lidocaine/Epinephrine (Lidocaine 1.5%-Epi 1:200,000) Confirm Administered Dose 5 ml IJ .STK-MED ONE Stop: 04/09/18 00:45 Last Admin: 04/09/18 23:13 Dose: Not Given Ropivacaine (Naropin 0.2%) Confirm Administered Dose 20 ml .ROUTE .STK-MED ONE Stop: 04/09/18 00:47 Last Admin: 04/09/18 23:13 Dose: Not Given - Interaction Infant Disposition, : [place] in Room with Family Infant Interaction: Holding Infant Infant Feeding: Attempted ; Nursed Fair/Poor Support Person: Significant Other - Recovery Exam Fundal Tone: Firm Fundal Level: 1 Fingerbreadths Below Umbilicus Fundal Placement: Midline Lochia Amount: Scant Lochia Color: Rubra/Red Perineum Description: Other (see below) Other Perinuem Description: 2nd degree episiotomy Episiotomy/Laceration: Approximated Bladder Status: Voiding - Exam Neck: Supple Lungs: Clear to Auscultation, Normal Respiratory Effort Cardiovascular: Regular Rate, Regular Rhythm GI/Abdominal Exam: Normal Bowel Sounds, Soft, Non-Tender, No Distention, No Mass Extremities: Normal Inspection, Non-Tender, Normal Capillary Refill, Pedal Edema (trace) Skin: Warm, Dry, Intact - Problem List & Annotations (1) Vaginal delivery SNOMED Code(s): 926905423 Code(s): O80 - ENCOUNTER FOR FULL-TERM UNCOMPLICATED DELIVERY Status: Acute Current Visit: Yes - Problem List Review Problem List Initiated/Reviewed/Updated: Yes - Assessment Assessment:: 22 yo P2 s/p , BPs normalizing on labetalol 200mg BID. She declines headache , RUQ pain, or vision changes. Would like to go home later today. - Plan Plan:: Continue labetalol 200 mg PO BID with blood pressure check in 1 week. Pelvic rest for 6 weeks. Can use OTC ibuprofen/tylenol as needed for pain. Instructed patient to call if she develops fever greater than 101 or bleeding through a large pad an hour. F/U with [facility] in 6 weeks <Candice Beckett - Last Filed: 04/11/18 08:48> - Patient Data Vital Signs - Most Recent: Last Vital Signs Temp 36.2 C 04/11/18 06:06 Pulse 63 04/11/18 08:32 Resp 14 04/11/18 06:06 BP 138/82 04/11/18 08:32 Pulse Ox 95 04/11/18 06:06 Lab Results - Last 24 Hours: Laboratory Results - last 24 hr 04/11/18 04/11/18 Range/Units 05:28 05:28 WBC 8.14 (4.0-11.0) K/uL RBC 3.22 L (4.30-5.90) M/uL Hgb 10.2 L (12.0-16.0) g/dL Hct 30.9 L (36.0-46.0) % MCV 96.0 (80.0-98.0) fL MCH 31.7 (27.0-32.0) pg MCHC 33.0 (31.0-37.0) g/dL RDW Std Deviation 44.5 (28.0-62.0) fl RDW Coeff of Adrien 13 (11.0-15.0) % Plt Count 132 L (150-400) K/uL MPV 11.20 (7.40-12.00) fL Neut % (Auto) 68.1 (48.0-80.0) % Lymph % (Auto) 21.9 (16.0-40.0) % [place] % (Auto) 7.1 (0.0-15.0) % Eos % (Auto) 2.7 (0.0-7.0) % Baso % (Auto) 0.2 (0.0-1.5) % Neut # (Auto) 5.5 (1.4-5.7) K/uL Lymph # (Auto) 1.8 (0.6-2.4) K/uL [place] # (Auto) 0.6 (0.0-0.8) K/uL Eos # (Auto) 0.2 (0.0-0.7) K/uL Baso # (Auto) 0.0 (0.0-0.1) K/uL Nucleated RBC % 0.0 /100WBC Nucleated RBCs # 0 K/uL Sodium 138 (136-145) mmol/L Potassium 3.6 (3.5-5.1) mmol/L Chloride 107 (98-107) mmol/L Carbon Dioxide 20.3 L (21.0-32.0) mmol/L BUN 9 (7.0-18.0) mg/dL Creatinine 1.0 (0.6-1.0) mg/dL Est Cr Clr Drug Dosing 85.81 mL/min Estimated GFR (MDRD) > 60.0 ml/min Glucose 87 (74-106) mg/dL Calcium 8.7 (8.5-10.1) mg/dL Total Bilirubin 0.2 (0.2-1.0) mg/dL AST 22 (15-37) IU/L ALT 12 L (14-63) IU/L Alkaline Phosphatase 146 H (46-116) U/L Total Protein 5.3 L (6.4-8.2) g/dL Albumin 2.0 L (3.4-5.0) g/dL Globulin 3.3 (2.6-4.0) g/dL Albumin/Globulin Ratio 0.6 L (0.9-1.6) Med Orders - Current: Current Medications Acetaminophen (Tylenol Extra Strength) 500 mg PO Q4H PRN PRN Reason: Pain Acetaminophen (Tylenol Extra Strength) 1,000 mg PO Q4H PRN PRN Reason: Pain Last Admin: 04/11/18 08:34 Dose: 1,000 mg Benzocaine/Menthol (Dermoplast Pain Relief 20%-0.5% [place]) 78 gm TOP ASDIRECTED PRN PRN Reason: Perineal Comfort Measure Last Admin: 04/09/18 16:01 Dose: 1 canister Bisacodyl (Dulcolax) 10 mg RECTAL ONETIME PRN PRN Reason: Constipation Butorphanol Tartrate (Stadol) 1 mg IVPUSH Q1H PRN PRN Reason: Pain Carboprost Tromethamine (Hemabate Ds) 250 mcg IM ASDIRECTED PRN PRN Reason: Post Hemorrhage Docusate Sodium (Colace) 100 mg PO BID PRN PRN Reason: Constipation Last Admin: 04/11/18 08:34 Dose: 100 mg Emollient Ointment (Lansinoh Hpa) 0 gm TOP ASDIRECTED PRN PRN Reason: Sore Nipples Tranexamic Acid 1,000 mg/ (Sodium Chloride) 110 mls @ 660 mls/hr IV ONETIME PRN PRN Reason: Bleeding Lactated Ringer's (Ringers, Lactated) 1,000 mls @ 150 mls/hr IV ASDIRECTED SUMIT Last Admin: 04/09/18 00:56 Dose: 999 mls/hr Oxytocin/Sodium Chloride (Oxytocin 30 Unit/500 Ml-Ns) 30 unit in 500 mls @ 999 mls/hr IV TITRATE SUMIT Oxytocin/Sodium Chloride (Oxytocin 30 Unit/500 Ml-Ns) 30 unit in 500 mls @ 2 mls/hr IV TITRATE SUMIT; Protocol Last Titration: 04/09/18 06:45 Dose: 6 munits/min, 6 mls/hr Ibuprofen (Motrin) 400 mg PO Q4H PRN PRN Reason: Pain Ibuprofen (Motrin) 800 mg PO Q6H PRN PRN Reason: Pain Last Admin: 04/11/18 05:32 Dose: 800 mg Labetalol HCl (Normodyne) 200 mg PO BID SUMIT Last Admin: 04/11/18 08:32 Dose: 200 mg Lidocaine HCl (Xylocaine 1%) 50 ml INJECT ONETIME PRN PRN Reason: Laceration repair Last Admin: 04/09/18 13:41 Dose: 50 ml Methylergonovine Maleate (Methergine) 0.2 mg IM ASDIRECTED PRN PRN Reason: Post Hemorrhage Last Admin: 04/09/18 16:05 Dose: 0.2 mg Misoprostol (Cytotec) 200 mcg PO ONETIME PRN PRN Reason: Post Hemorrhage Misoprostol (Cytotec) 25 mcg VAG ONETIME PRN PRN Reason: Cervical Ripening Last Admin: 04/08/18 17:09 Dose: 25 mcg Misoprostol (Cytotec) 25 mcg VAG Q6H PRN PRN Reason: Cervical Ripening Nalbuphine HCl (Nubain) 10 mg IVPUSH Q1H PRN PRN Reason: Pain (severe 7-10) Oxycodone HCl (Oxycodone) 5 mg PO Q2H PRN PRN Reason: Pain Last Admin: 04/09/18 16:03 Dose: 5 mg Sodium Chloride (Saline Flush) 10 ml FLUSH ASDIRECTED PRN PRN Reason: Keep Vein Open Sodium Chloride (Saline Flush) 2.5 ml FLUSH ASDIRECTED PRN PRN Reason: Keep Vein Open Sterile Water (Sterile Water For Irrigation) 1,000 ml IRR ASDIRECTED PRN PRN Reason: delivery Last Admin: 04/09/18 13:41 Dose: 1,000 ml Terbutaline Sulfate (Brethine) 0.25 mg SUBCUT ASDIRECTED PRN PRN Reason: Tacysystole Elayne Peterson (Tucks) 1 pad TOP ASDIRECTED PRN PRN Reason: comfort care Last Admin: 04/09/18 16:02 Dose: 1 tub Discontinued Medications Fentanyl (Sublimaze) Confirm Administered Dose 100 mcg .ROUTE .STK-MED ONE Stop: 04/09/18 00:46 Last Admin: 04/09/18 23:13 Dose: Not Given Fentanyl/Bupivacaine HCl (Aqztrmvy-Inkcl-Nq 2 Mcg/Ml-0.125%) Confirm Administered Dose 100 mls @ as directed .ROUTE .STK-MED ONE Stop: 04/09/18 00:45 Last Admin: 04/09/18 23:12 Dose: Not Given Fentanyl/Bupivacaine HCl (Oebnzeyy-Gekuf-Ab 2 Mcg/Ml-0.125%) Confirm Administered Dose 100 mls @ as directed .ROUTE .STK-MED ONE Stop: 04/09/18 11:27 Last Admin: 04/09/18 23:14 Dose: Not Given Labetalol HCl (Normodyne) 100 mg PO BID SUMIT Last Admin: 04/10/18 08:30 Dose: 100 mg Labetalol HCl (Normodyne) 100 mg PO ONETIME ONE Stop: 04/10/18 13:36 Last Admin: 04/10/18 14:13 Dose: 100 mg Lidocaine/Epinephrine (Lidocaine 1.5%-Epi 1:200,000) Confirm Administered Dose 5 ml IJ .STK-MED ONE Stop: 04/09/18 00:45 Last Admin: 04/09/18 23:13 Dose: Not Given Ropivacaine (Naropin 0.2%) Confirm Administered Dose 20 ml .ROUTE .STK-MED ONE Stop: 04/09/18 00:47 Last Admin: 04/09/18 23:13 Dose: Not Given - Problem List Review Problem List Initiated/Reviewed/Updated: Yes - Assessment Assessment:: patient was seen and examined by me and I agree with above.
[2018-04-11] MEDS: Labetalol 100 MG Tab PO SCH (08:32)
[2018-04-11] MEDS: Acetaminophen 500 MG Tab PO PRN (08:34)
[2018-04-11] MEDS: Docusate Sodium 100 MG Cap PO PRN (08:34)
== END 2018-04-11 12:50 | disposition home or self-care (01) | DRG 807 ==
LOC: MW.OBCHECK 13:14 → MW.OB 13:17 → MW.OBCHECK 19:04 → OBSVTOIN 04-09 13:41
PROVIDERS: ADMIT Obstetrics & Gynecology; ATTEND Obstetrics & Gynecology
PROC: 10E0XZZ Delivery of Products of Conception, External Approach (ICD-10-PCS; principal; 2018-04-09)
PROC: 0W8NXZZ Division of Female Perineum, External Approach (ICD-10-PCS; principal; 2018-04-09)
PROC: 10907ZC Drainage of Amniotic Fluid, Therapeutic from Products of Conception, Via Natural or Artificial Opening (ICD-10-PCS; principal; 2018-04-09)
PROC: 3E033VJ Introduction of Other Hormone into Peripheral Vein, Percutaneous Approach (ICD-10-PCS; principal; 2018-04-09)
PROC: 3E0P7VZ Introduction of Hormone into Female Reproductive, Via Natural or Artificial Opening (ICD-10-PCS; principal; 2018-04-09)
PROC: 00HU33Z Insertion of Infusion Device into Spinal Canal, Percutaneous Approach (ICD-10-PCS; 2018-04-09)
PROC: 3E0R3BZ Introduction of Anesthetic Agent into Spinal Canal, Percutaneous Approach (ICD-10-PCS; 2018-04-09)
DX: O14.14 Severe pre-eclampsia complicating childbirth (principal); Z37.0 Single live birth; O13.4 Gestational [pregnancy-induced] hypertension without significant proteinuria, complicating childbirth; Z3A.38 38 weeks gestation of pregnancy
CPT/HCPCS: 36415; 51702; 59025; 59409; 80053; 84550; 85014; 85018; 85025; 86850; 86900; 86901; A9270-GY; J2210; J2590; J2795; J3010; J7120

== ENCOUNTER 2020-05-08 12:08 | Day surgery (SDC) | payer OTHER, MEDICAID ==
[2020-05-08] MEDS ORDERED: Acetaminophen 500 MG Tab PO PRN (14:48)
--- NOTE | 2020-05-08 14:55 | PCM.SN.2 ---
- Free Text/Narrative Note: Patient is s/p suction dilation & curettage for incomplete , failed medical management. See other accounts for patient for operative report (new account number assigned upon admission). Concern for early developing septic /DIC. Will check coagulation studies with CBC at 1900. Will treat for presumed infection with one dose of Levofloxacin and Flagyl IV. Patient staying for overnight observation for fever and anemia.
[2020-05-08] MEDS ORDERED: Lactated Ringers 1,000 ML IV SCH (15:00)
[2020-05-08] MEDS ORDERED: metroNIDAZOLE/Normal Saline 500 MG in Premix Bag 1 BAG IV ONE (15:00)
--- NOTE | 2020-05-08 15:07 | PCM.PREANE ---
Preanesthetic Assessment - Anesthesia/Transfusion/Family Hx Anesthesia History: No Prior Anesthesia Family History of Anesthesia Reaction: No Transfusion History: Unknown Intubation History: Unknown - Review of Systems General: No Symptoms Pulmonary: No Symptoms Cardiovascular: No Symptoms Gastrointestinal: No Symptoms Neurological: No Symptoms Other: Reports: None - Physical Assessment ASA Class: 2E Mental Status: Alert & Oriented x3 Airway Class: Mallampati = 1 Dentition: Reports: Normal Dentition (lower rateiner) Thyro-Mental Finger Breadths: 3 Mouth Opening Finger Breadths: 3 ROM/Head Extension: Full Lungs: Clear to Auscultation, Normal Respiratory Effort Cardiovascular: Regular Rate, Regular Rhythm - Allergies Allergies/Adverse Reactions: Allergies Allergy/AdvReac Type Severity Reaction Status Date / Time No Known Allergies Allergy Verified 05/08/20 14:33 - Blood Blood Available: No - Anesthesia Plan Pre-Op Medication Ordered: None - Acknowledgements Anesthesia Type Planned: General Anesthesia Pt an Appropriate Candidate for the Planned Anesthesia: Yes Alternatives and Risks of Anesthesia Discussed w Pt/Guardian: Yes Pt/Guardian Understands and Agrees with Anesthesia Plan: Yes PreAnesthesia Questionnaire INTERLINE CLERK History: Reports: Musculoskeletal History: Reports: RA (H/O juvenile RA, 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 [No Known Home Meds] 05/08/20 [History] - CURRENT (IN HOUSE) MEDS Current Meds: Current Medications Lactated Ringer's (Ringers, Lactated) 1,000 mls @ 125 mls/hr IV ASDIRECTED SUMIT Discontinued Medications Doxycycline Hyclate (Doxycycline 100 Mg Cap) 200 mg PO ONETIME ONE Stop: 05/08/20 12:05 Fentanyl (Fentanyl 100 Mcg/2 Ml Sdv) Confirm Administered Dose 100 mcg .ROUTE .STK-MED ONE Stop: 05/08/20 12:23 Glycopyrrolate (Glycopyrrolate 0.2 Mg/Ml Sdv) Confirm Administered Dose 0.2 mg .ROUTE .STK-MED ONE Stop: 05/08/20 12:24 Ketorolac Tromethamine (Ketorolac 30 Mg/Ml Sdv) Confirm Administered Dose 30 mg .ROUTE .STK-MED ONE Stop: 05/08/20 12:24 Lidocaine (Lidocaine 2% 5 Ml Sdv) Confirm Administered Dose 5 ml .ROUTE .STK-MED ONE Stop: 05/08/20 12:24 Midazolam HCl (Midazolam 1 Mg/Ml 2 Ml Sdv) Confirm Administered Dose 2 mg .ROUTE .STK-MED ONE Stop: 05/08/20 12:23 Ondansetron HCl (Ondansetron 4 Mg/2 Ml Sdv) Confirm Administered Dose 4 mg .ROUTE .STK-MED ONE Stop: 05/08/20 12:24 Propofol (Propofol 200 Mg/20 Ml Sdv) Confirm Administered Dose 200 mg .ROUTE .STK-MED ONE Stop: 05/08/20 12:22
--- NOTE | 2020-05-08 15:08 | PCM.POSTAN ---
POST ANESTHESIA ASSESSMENT - MENTAL STATUS Mental Status: Alert, Oriented - VITAL SIGNS Vital Signs: Last Vital Signs Temp 36.3 C 05/08/20 13:37 Pulse 102 H 05/08/20 14:12 Resp 18 05/08/20 14:12 BP 119/73 05/08/20 14:12 Pulse Ox 99 05/08/20 14:12 - RESPIRATORY Respiratory Status: Respiratory Rate WNL, Airway Patent, O2 Saturation Stable - CARDIOVASCULAR CV Status: Pulse Rate WNL, Blood Pressure Stable - GASTROINTESTINAL GI Status: No Symptoms - PAIN Pain Score: 4 - POST OP HYDRATION Hydration Status: Adequate & Stable - OBSERVATIONS Free Text/Narrative:: No anesthesia problems
--- NOTE | 2020-05-08 15:08 | PCM.OPNOTE ---
- General Post-Op/Procedure Note Date of Surgery/Procedure: 05/08/20 Operative Procedure(s): Suction dilation and curettage Findings: Uterus sounded to 10cm Large amount of retained products of conception Pre Op Diagnosis: 24yo with 13 week incomplete , failed medical management Post-Op Diagnosis: Same Anesthesia Technique: General LMA Primary Surgeon: Dorene Price Anesthesia Provider: Chinyere Self Pathology: Products of conception Fluid Replacement, Intraop: 2,000 EBL in mLs: 700 Complications: None Free Text/Narrative:: 0.25mg IM Methergine given 1g IV Tranexamic acid given 2U pRBCs placed on hold
[2020-05-08] MEDS ORDERED: Levofloxacin/Dextrose 5%-Water 500 MG in Premix Bag 1 BAG IV ONE (15:15)
[2020-05-08] MEDS: Ibuprofen 800 MG Tab PO PRN (15:23)
[2020-05-08 19:54] LABS: BLOOD UREA NITROGEN,BUN 8 mg/dL (7.0-18.0); CARBON DIOXIDE,CO2 22.8 mmol/L (21.0-32.0); CHLORIDE,CL 105 mmol/L (98-107); GLUCOSE RANDOM 116 mg/dL (74-106); POTASSIUM,K 3.6 mmol/L (3.5-5.1); SODIUM,NA 137 mmol/L (136-145)
--- NOTE | 2020-05-08 20:40 | PCM.SN.2 ---
- Free Text/Narrative Note: Patient doing well. Feels lightheaded while sitting up in bed, but denies dizziness with ambulation. Minimal bleeding and cramping. Denies fevers/chills. BP wnl, HR 100s Hemoglobin has decreased as expected to 8.6. I suspect it will continue to decrease slightly to its actual value as her body adjusts to blood loss. Given tachycardia and anemia not yet at fam, discussed blood transfusion with patient. Will plan to give 1 unit packed RBC transfusion, keep second unit on hold for AM CBC. Reviewed risks of blood transfusion, including but not limited to, fever, itching, and 1/1,000,000 risk HIV and 1/500,000 Hepatitis. She voiced understanding of this and agrees to transfusion. All questions answered.
[2020-05-08] MEDS ORDERED: diphenhydrAMINE 25 MG Cap PO PRN (20:41)
--- NOTE | 2020-05-08 21:37 | OR ---
SURGEON: Dorene Price MD DATE OF PROCEDURE: 05/08/2020 PREOPERATIVE DIAGNOSIS: A 24-year-old, G2, P 1-0-1-1, with incomplete , failed medical management. POSTOPERATIVE DIAGNOSIS: A 24-year-old, G2, P 1-0-1-1, with incomplete , failed medical management. PROCEDURE: Suction dilation and curettage. PRIMARY SURGEON: Dorene Price MD ANESTHESIA: General LMA. COMPLICATIONS: None. ESTIMATED BLOOD LOSS: 700 mL. FLUIDS: 2 L of LR. URINE OUTPUT: Bladder drained prior to procedure. SPECIMEN: Products of conception. FINDINGS: 10-week size uterus with large amount of products of conception. MEDICATIONS: 0.2 mg IM Methergine and 1 g IV tranexamic acid. DESCRIPTION OF PROCEDURE: The patient was taken to the operating room where anesthesia was obtained. She was placed in dorsal lithotomy position with legs in Yellofins stirrups. An exam under anesthesia revealed a 10-week size anteverted uterus with cervix 2 cm dilated. The patient was prepared and draped in a normal sterile fashion. A Graves speculum was inserted into the vagina. An Allis clamp was used to grasp the anterior lip of the cervix. The uterus was carefully sounded to 10 cm. An 8 mm suction curette was advanced to the uterine fundus. The suction was then started. The products of conception were evacuated with curette rotating on the outward movement. A gentle sharp curettage was then performed with a medium-sized curette. The suction curette was then reintroduced to clear the uterus of additional products of conception. A second sharp curettage was performed until a gritty texture was noted in all areas of the uterus. At this time, brisk bleeding was noted from the cervix. A weighted speculum and a right-angle retractor were used to obtain better visualization of the cervix. The cervix was grasped with the ring forceps. The cervix was inspected and no lacerations were noted. It was felt that the uterus is unlikely to be perforated due to ability to palpate the fundus gently with an instrument. She was given 0.2 mg of IM Methergine at this time. She continued to have brisk bleeding. All instruments were removed from the vagina and the bimanual exam with massage was performed. The fundus was firm, however, the lower uterine segment was atonic. Massage was performed until an increase in uterine tone was noted. The speculum was reinserted and again there was brisk bleeding was noted. The cervix was grasped with a ring forceps again and bleeding abated. 1 g of tranexamic acid was given IV at this time. The speculum was removed, and the patient was monitored with no additional bleeding. The speculum was reinserted and the cervix was cleaned with a sponge stick with hemostasis again noted. All the instruments removed. The patient tolerated the procedure well. She was taken to recovery room in stable condition where a CBC was obtained and 2 units of packed red blood cells were placed on hold. She will be admitted for observation to ensure she does not become anemic and require blood transfusion. [id number] / MODL /[id number] MTDD
[2020-05-09] MEDS: Ibuprofen 800 MG Tab PO PRN ×2 (01:38→08:57)
--- NOTE | 2020-05-09 07:50 | PCM.PN ---
- General Info Date of Service: 05/09/20 Subjective Update: Patient is doing very well since transfusion. She reports she is feeling much better. Denies dizziness. Light spotting with very mild cramps. Ambulating in room without difficulty. Denies fevers/chills. Functional Status: Reports: Pain Controlled, Tolerating Diet, Ambulating, Urinating - Review of Systems General: Reports: No Symptoms HEENT: Reports: No Symptoms Pulmonary: Reports: No Symptoms Cardiovascular: Reports: No Symptoms Gastrointestinal: Reports: No Symptoms Genitourinary: Reports: No Symptoms Musculoskeletal: Reports: No Symptoms Skin: Reports: No Symptoms Neurological: Reports: No Symptoms Psychiatric: Reports: No Symptoms - Patient Data Vitals - Most Recent: Last Vital Signs Temp 36.9 C 05/09/20 05:35 Pulse 87 05/09/20 05:35 Resp 15 05/09/20 05:35 BP 115/69 05/09/20 05:35 Pulse Ox 98 05/09/20 05:35 Weight - Most Recent: 72.575 kg I&O - Last 24 Hours: Intake & Output 05/08/20 05/09/20 05/09/20 22:59 06:59 14:59 Intake Total 300 1330 Output Total 100 750 Balance 200 580 Lab Results Last 24 Hours: Laboratory Results - last 24 hr 05/08/20 05/08/20 05/08/20 Range/Units 13:45 19:04 19:04 WBC (4.0-11.0) K/uL RBC (4.30-5.90) M/uL Hgb (12.0-16.0) g/dL Hct (36.0-46.0) % MCV (80.0-98.0) fL MCH (27.0-32.0) pg MCHC (31.0-37.0) g/dL RDW Std Deviation (28.0-62.0) fl RDW Coeff of Adrien (11.0-15.0) % Plt Count (150-400) K/uL MPV (7.40-12.00) fL Nucleated RBC % /100WBC Nucleated RBCs # K/uL INR 1.08 APTT 26.2 (18.6-31.3) SEC Fibrinogen 377 (215-411) mg/dL Sodium 137 (136-145) mmol/L Potassium 3.6 (3.5-5.1) mmol/L Chloride 105 (98-107) mmol/L Carbon Dioxide 22.8 (21.0-32.0) mmol/L BUN 8 (7.0-18.0) mg/dL Creatinine 0.8 (0.6-1.0) mg/dL Est Cr Clr Drug Dosing 105.45 mL/min Estimated GFR (MDRD) > 60.0 ml/min Glucose 116 H (74-106) mg/dL Calcium 7.9 L (8.5-10.1) mg/dL Blood Type A POSITIVE Antibody Screen NEGATIVE Crossmatch See Detail 05/09/20 Range/Units 07:19 WBC 2.79 L (4.0-11.0) K/uL RBC 2.95 L (4.30-5.90) M/uL Hgb 9.4 L (12.0-16.0) g/dL Hct 27.8 L (36.0-46.0) % MCV 94.2 (80.0-98.0) fL MCH 31.9 (27.0-32.0) pg MCHC 33.8 (31.0-37.0) g/dL RDW Std Deviation 44.9 (28.0-62.0) fl RDW Coeff of Adrien 13 (11.0-15.0) % Plt Count 111 L (150-400) K/uL MPV 10.20 (7.40-12.00) fL Nucleated RBC % 0.0 /100WBC Nucleated RBCs # 0 K/uL INR APTT (18.6-31.3) SEC Fibrinogen (215-411) mg/dL Sodium (136-145) mmol/L Potassium (3.5-5.1) mmol/L Chloride (98-107) mmol/L Carbon Dioxide (21.0-32.0) mmol/L BUN (7.0-18.0) mg/dL Creatinine (0.6-1.0) mg/dL Est Cr Clr Drug Dosing mL/min Estimated GFR (MDRD) ml/min Glucose (74-106) mg/dL Calcium (8.5-10.1) mg/dL Blood Type Antibody Screen Crossmatch Med Orders - Current: Current Medications Acetaminophen (Acetaminophen 500 Mg Tab) 1,000 mg PO Q6H PRN PRN Reason: Abdominal Pain Last Admin: 05/08/20 19:58 Dose: 1,000 mg Documented by: Diphenhydramine HCl (Diphenhydramine 25 Mg Cap) 25 mg PO Q6H PRN PRN Reason: Other Lactated Ringer's (Ringers, Lactated) 1,000 mls @ 75 mls/hr IV ASDIRECTED SUMIT Last Admin: 05/08/20 15:19 Dose: 75 mls/hr Documented by: Ibuprofen (Ibuprofen 800 Mg Tab) 800 mg PO Q8H PRN PRN Reason: Abdominal Pain Last Admin: 05/09/20 01:38 Dose: 800 mg Documented by: Discontinued Medications Metronidazole 500 mg/ Premix 100 mls @ 100 mls/hr IV ONETIME ONE Stop: 05/08/20 15:59 Last Admin: 05/08/20 15:20 Dose: 100 mls/hr Documented by: Levofloxacin/Dextrose 500 mg/ (Premix) 100 mls @ 100 mls/hr IV ONETIME ONE Stop: 05/08/20 16:14 Last Admin: 05/08/20 16:37 Dose: 100 mls/hr Documented by: - Exam General: Alert, Oriented Neck: Supple Lungs: Normal Respiratory Effort Cardiovascular: Regular Rate, Regular Rhythm GI/Abdominal Exam: Soft, Non-Tender, No Distention (Female) Exam: Deferred Extremities: No Pedal Edema Skin: Warm, Dry, Intact Neurological: No New Focal Deficit Psy/Mental Status: Alert, Normal Affect, Normal Mood - Patient Data Lab Results Last 24 hrs: Laboratory Results - last 24 hr 05/08/20 05/08/20 05/08/20 Range/Units 13:45 19:04 19:04 WBC (4.0-11.0) K/uL RBC (4.30-5.90) M/uL Hgb (12.0-16.0) g/dL Hct (36.0-46.0) % MCV (80.0-98.0) fL MCH (27.0-32.0) pg MCHC (31.0-37.0) g/dL RDW Std Deviation (28.0-62.0) fl RDW Coeff of Adrien (11.0-15.0) % Plt Count (150-400) K/uL MPV (7.40-12.00) fL Nucleated RBC % /100WBC Nucleated RBCs # K/uL INR 1.08 APTT 26.2 (18.6-31.3) SEC Fibrinogen 377 (215-411) mg/dL Sodium 137 (136-145) mmol/L Potassium 3.6 (3.5-5.1) mmol/L Chloride 105 (98-107) mmol/L Carbon Dioxide 22.8 (21.0-32.0) mmol/L BUN 8 (7.0-18.0) mg/dL Creatinine 0.8 (0.6-1.0) mg/dL Est Cr Clr Drug Dosing 105.45 mL/min Estimated GFR (MDRD) > 60.0 ml/min Glucose 116 H (74-106) mg/dL Calcium 7.9 L (8.5-10.1) mg/dL Blood Type A POSITIVE Antibody Screen NEGATIVE Crossmatch See Detail 05/09/20 Range/Units 07:19 WBC 2.79 L (4.0-11.0) K/uL RBC 2.95 L (4.30-5.90) M/uL Hgb 9.4 L (12.0-16.0) g/dL Hct 27.8 L (36.0-46.0) % MCV 94.2 (80.0-98.0) fL MCH 31.9 (27.0-32.0) pg MCHC 33.8 (31.0-37.0) g/dL RDW Std Deviation 44.9 (28.0-62.0) fl RDW Coeff of Adrien 13 (11.0-15.0) % Plt Count 111 L (150-400) K/uL MPV 10.20 (7.40-12.00) fL Nucleated RBC % 0.0 /100WBC Nucleated RBCs # 0 K/uL INR APTT (18.6-31.3) SEC Fibrinogen (215-411) mg/dL Sodium (136-145) mmol/L Potassium (3.5-5.1) mmol/L Chloride (98-107) mmol/L Carbon Dioxide (21.0-32.0) mmol/L BUN (7.0-18.0) mg/dL Creatinine (0.6-1.0) mg/dL Est Cr Clr Drug Dosing mL/min Estimated GFR (MDRD) ml/min Glucose (74-106) mg/dL Calcium (8.5-10.1) mg/dL Blood Type Antibody Screen Crossmatch Result Diagrams: 05/09/20 07:19 05/08/20 19:04 Sepsis Event Note - Evaluation Sepsis Screening Result: No Definite Risk - Focused Exam Vital Signs: Vital Signs Temp Pulse Resp BP Pulse Ox 05/09/20 05:35 36.9 C 87 15 115/69 98 05/09/20 02:15 36.8 C 89 15 118/63 99 05/08/20 23:00 36.6 C 86 14 109/63 99 05/08/20 19:57 36.9 C 94 14 115/70 98 - Problem List & Annotations (1) Incomplete SNOMED Code(s): 796446769 Code(s): O03.4 - INCOMPLETE SPONTANEOUS WITHOUT COMPLICATION Status: Acute Current Visit: Yes - Problem List Review Problem List Initiated/Reviewed/Updated: Yes - My Orders Last 24 Hours: My Active Orders 05/08/20 13:45 RED BLOOD CELLS LP [BBK] Routine TYPE AND SCREEN [BBK] Stat 05/08/20 14:46 Patient Status [ADT] Routine Vital Signs [RC] Q4H Resuscitation Status Routine 05/08/20 14:47 Ambulate [RC] PER UNIT ROUTINE Antiembolic Devices [RC] .Routine Notify Provider Status Change [RC] PRN Notify Provider Vital Signs [RC] PRN Up ad Dalila [RC] PER UNIT ROUTINE VTE/DVT Education [RC] PER UNIT ROUTINE DVT/VTE Prophylaxis Reflex [OM.PC] Routine 05/08/20 14:48 Acetaminophen [Tylenol Extra Strength] 1,000 mg PO Q6H PRN Ibuprofen [Motrin] 800 mg PO Q8H PRN 05/08/20 15:00 Lactated Ringers [Ringers, Lactated] 1,000 ml IV ASDIRECTED 05/08/20 Dinner Regular Diet [DIET] 05/08/20 20:40 Transfuse PRBC [Transfuse Red Blood Cells] [COMM] Routine 05/08/20 20:41 diphenhydrAMINE [Benadryl] 25 mg PO Q6H PRN 05/09/20 07:42 Ready for Discharge [RC] PER UNIT ROUTINE - Assessment Assessment:: 24yo s/p suction D&C for incomplete , failed medical management, with significant vaginal bleeding. - Plan Plan:: 1. Post-op: Patient meeting all postoperative milestones with minimal bleeding. 2. Anemia: s/p 1 unit packed RBCs due to anemia, tachycardia, and lightheadedness. VS normal today and patient feeling better. Hemoglobin improved. 3. Suspect infection may have been developing, given patient's extreme pain and thrombocytopenia. Received Doxycycline pre-operatively and Levofloxacin/Flagyl IV post-operatively. She has remained afebrile. 4. Dispo: Discharge home this morning. She has an appointment and repeat CBC in 1 week. Reviewed discharge instructions/precautions with patient. All questions answered.
== END 2020-05-09 09:15 | disposition home or self-care (01) ==
LOC: MW.SDS 12:08 → MERGE 12:08 → MW.MS 13:53 → MW.SDS 05-09 09:15
PROVIDERS: ATTEND Obstetrics & Gynecology
DX: O03.4 Incomplete spontaneous abortion without complication (principal); D64.9 Anemia, unspecified; Z01.812 Encounter for preprocedural laboratory examination; Z20.822 Contact with and (suspected) exposure to COVID-19; Z3A.13 13 weeks gestation of pregnancy
CPT/HCPCS: 36415; 36430; 59812; 80048; 85025; 85027; 85384; 85610; 85730; 86850; 86900; 86901; 86920; 86921; 86922; 87635; 88305; A9270; J1956; J3490; J7120; P9016; 01965; J0131; J1885; J2250; J2405; J2704; J3010; U0002

== ENCOUNTER 2022-09-09 04:54 | Inpatient (IN) | payer BC ==
[2022-09-09] MEDS ORDERED: Terbutaline 1 MG/ML SDV SUBCUT PRN (04:59)
[2022-09-09] MEDS ORDERED: Oxytocin/0.9 % Sodium Chloride 30 UNIT/500 ML BAG IV SCH ×2 (05:00)
[2022-09-09] MEDS ORDERED: Methylergonovine 0.2 MG/1 ML Amp IM PRN (05:24)
[2022-09-09] MEDS ORDERED: Misoprostol 200 MCG Tab PO PRN ×2 (05:24→14:44)
[2022-09-09] MEDS ORDERED: Carboprost Tromethamine 250 MCG/1 mL Vial IM PRN (05:24)
[2022-09-09] MEDS ORDERED: Water For Irrigation,Sterile 1,000 ML Container IRR PRN (05:24)
[2022-09-09] MEDS ORDERED: Butorphanol 1 MG/ML SDV IVPUSH PRN (05:24)
[2022-09-09] MEDS ORDERED: Sodium Chloride 0.9% 2.5 ML Syringe FLUSH PRN (05:24)
[2022-09-09] MEDS ORDERED: Tranexamic Acid 1,000 MG in Sodium Chloride 0.9% 100 ML IV PRN ×2 (05:24→14:44)
[2022-09-09] MEDS ORDERED: Sodium Chloride 0.9% 20 ML SDV IV PRN (05:24)
[2022-09-09] MEDS ORDERED: Sodium Chloride 0.9% 10 ML Syringe FLUSH PRN (05:24)
[2022-09-09] MEDS ORDERED: Lidocaine 1% 50 ML MDV INJECT PRN (05:24)
[2022-09-09 06:01] LABS: HEMATOCRIT 34.7 % (36.0-46.0); HEMOGLOBIN 11.8 g/dL (12.0-16.0); MEAN CORPUSCULAR HEMOGLOBIN 32.3 pg (27.0-32.0); MEAN CORPUSCULAR VOLUME 95.1 fL (80.0-98.0); MEAN PLATELET VOLUME 11.9 fL (7.40-12.00); RED BLOOD CELL COUNT 3.65 M/uL (4.30-5.90); WHITE BLOOD CELL COUNT,WBC 7.69 K/uL (4.0-11.0)
[2022-09-09] MEDS: Lactated Ringers 1,000 ML IV SCH ×2 (06:27→10:15)
[2022-09-09] MEDS: Labetalol 100 MG Tab PO SCH ×2 (07:25→14:43)
[2022-09-09] MEDS: Calcium Carbonate 500 MG Tab.Chew PO PRN ×2 (07:25→14:43)
[2022-09-09] MEDS ORDERED: Bupivacaine 0.5% 10 ML SDV ONE (09:09)
[2022-09-09] MEDS ORDERED: Ropivacaine/PF 400 MG/200 ML PCA ONE (09:10)
[2022-09-09] MEDS ORDERED: Docusate Sodium 100 MG Cap PO PRN (14:44)
[2022-09-09] MEDS ORDERED: Lanolin 100% Cream 7 GM Tube TOP PRN (14:44)
[2022-09-09] MEDS ORDERED: Ibuprofen 400 MG Tab PO PRN (14:44)
[2022-09-09] MEDS ORDERED: Bisacodyl 10 MG Supp RECTAL PRN (14:44)
[2022-09-09] MEDS ORDERED: Witch Hazel Medicated Pads 40/Jar TOP PRN (14:44)
[2022-09-09] MEDS ORDERED: Benzocaine/Menthol 20%-0.5% Spray 78 GM Cannister TOP PRN (14:44)
[2022-09-09 15:19] LABS: PH,UMBILICAL ARTERIAL 7.286 (7.18-7.38); PH,UMBILICAL VENOUS 7.341 (7.25-7.45)
[2022-09-09] MEDS: Ibuprofen 800 MG Tab PO PRN (19:55)
[2022-09-09] MEDS: Acetaminophen 500 MG Tab PO PRN (19:57)
[2022-09-10] MEDS: Acetaminophen 500 MG Tab PO PRN ×3 (00:31→09:39)
[2022-09-10] MEDS: Labetalol 100 MG Tab PO SCH ×3 (00:31→13:28)
[2022-09-10 06:06] LABS: HEMATOCRIT 35.2 % (36.0-46.0); HEMOGLOBIN 11.8 g/dL (12.0-16.0)
[2022-09-10] MEDS: Ibuprofen 800 MG Tab PO PRN (09:39)
== END 2022-09-10 17:00 | disposition home or self-care (01) | DRG 560 ==
LOC: MW.OBCHECK 04:54 → MW.OB 04:56 → MW.OBCHECK 05:00 → MW.OB 05:00 → OBSVTOIN 14:12 → MW.OB 20:13
PROVIDERS: ADMIT Obstetrics & Gynecology; ATTEND Obstetrics & Gynecology
PROC: 10E0XZZ Delivery of Products of Conception, External Approach (ICD-10-PCS; principal; 2022-09-09)
PROC: 10907ZC Drainage of Amniotic Fluid, Therapeutic from Products of Conception, Via Natural or Artificial Opening (ICD-10-PCS; 2022-09-09)
PROC: 0KQM0ZZ Repair Perineum Muscle, Open Approach (ICD-10-PCS; 2022-09-09)
PROC: 3E033VJ Introduction of Other Hormone into Peripheral Vein, Percutaneous Approach (ICD-10-PCS; 2022-09-09)
PROC: 3E0R3BZ Introduction of Anesthetic Agent into Spinal Canal, Percutaneous Approach (ICD-10-PCS; 2022-09-09)
PROC: 00HU33Z Insertion of Infusion Device into Spinal Canal, Percutaneous Approach (ICD-10-PCS; 2022-09-09)
DX: O13.4 Gestational [pregnancy-induced] hypertension without significant proteinuria, complicating childbirth (principal); Z3A.37 37 weeks gestation of pregnancy; Z37.0 Single live birth; O70.1 Second degree perineal laceration during delivery; O99.62 Diseases of the digestive system complicating childbirth; O99.02 Anemia complicating childbirth; K21.9 Gastro-esophageal reflux disease without esophagitis; Z86.16 Personal history of COVID-19
CPT/HCPCS: 36415; 51702; 59025; 59409; 82803; 85014; 85018; 85027; 86592; 86850; 86900; 86901; A9270-GY; J2590; J2795; J3490; J7120